=== PATIENT | female | born 1960 | race Caucasian/White ===

== ENCOUNTER → 2021-07-02 10:45 | Outpatient (CLI) | payer BC, SELFPAY ==
--- NOTE | ~2021-07-02 | DEXA_ITS ---
Bone Density Report Name: Anjelica Bowers Age: 60 Sex: Female Ethnicity: White Date of : 1960 Indication: postmenopausal; screening for osteoporosis; Referring Provider: Ayala, Hilda Study: Bone densitometry was performed. Exam Date: July 02, 2021 Accession number: [id number] Bone Density: Region BMD T-score Z-score Classification AP Spine (L1-L4) 0.814 -2.1 -0.8 Osteopenia Femoral Neck (Left) 0.659 -1.7 -0.5 Osteopenia Total Hip (Left) 0.918 -0.2 0.7 Normal Femoral Neck (Right) 0.697 -1.4 -0.1 Osteopenia Total Hip (Right) 0.891 -0.4 0.5 Normal Total Hip Mean 0.905 -0.3 0.6 Normal World Health Organization criteria for BMD impression classify patients as: Normal (T-score at or above -1.0), Osteopenia (T-score between -1.0 and -2.5), or Osteoporosis (T-score at or below -2.5). 10-year Fracture Risk: FRAX not reported because: Treated for osteoporosis Clinical Information Provided by Patient: Is being treated for osteoporosis Has used the following medications: HRT (i.e. estrogen/hormone therapy), Vitamin D Patient maximum height was 57.5 Menopause Age: 50 No regular weight bearing exercise Does not regularly consume dairy products Drinks caffeinated beverages Onset of menses at age 14 Number of children 0 Impression: The patient has low bone mass, based on the Total Spine T-score. Discussion: It is important to ask patients whether they are taking their medications and to encourage continued and appropriate compliance with their osteoporosis therapies to reduce fracture risk. It is also important to review their risk factors and encourage appropriate calcium and vitamin D intakes, exercise, fall prevention and other lifestyle measures. Follow-Up: Consider a repeat BMD and Vertebral Fracture Assessment (VFA) exam in 2 years or sooner if medically necessary, to reassess this patient's status. Reported by: ARA on 07/02/2021 12:06:00 PM. Reviewed, dictated and finalized at location ADomenica ARELLANO
--- NOTE | ~2021-07-02 | MM_ITS ---
EXAMINATION: MM screening harry BI w rebecca HISTORY: Screening TECHNIQUE: Craniocaudal and mediolateral oblique 3-D tomosynthesis images were obtained and synthetic 2-D images were generated. CAD analysis was submitted and interpreted. COMPARISON: No prior mammogram is available for comparison at this institution. BREAST PARENCHYMAL COMPOSITION: There are scattered areas of fibroglandular density. FINDINGS: There are asymmetries in the upper outer quadrant of the right breast. There are masses in the lower inner quadrant of the right breast and upper outer quadrant of the left breast. There are n o suspicious calcifications. IMPRESSION: 1. Bilateral breast masses. Right breast asymmetries. 2. Additional spot compression and mediolateral views with possible follow-up breast ultrasound recom mended. BI-RADS Category 0: Incomplete: Needs additional imaging evaluation. Reviewed, dictated and finalized at location A. IMPRESSION: 1. Bilateral breast masses. Right breast asymmetries. 2. Additional spot compression and mediolateral views with possible follow-up b reast ultrasound recommended. BI-RADS Category 0: Incomplete: Needs additional imaging evaluation.
--- NOTE | ~2021-07-02 | US_ITS ---
EXAMINATION: US transvaginal EXAM DATE: 07/02/2021 11:15 INDICATION: Abnormal findings on diagnostic imaging of other abdominal. TECHNIQUE: Pelvic transvaginal sonogram was performed. There are multiple grayscale and Doppler imag es available for interpretation. Comparison is made to prior examination from 09/17/2018. FINDINGS: Uterus measures 6.8 x 2.9 x 4.6 cm, and is morphologically normal. Endometrial stripe susanne ures 11 mm in thickness (previously measured at 13 mm), which is considered thickened for postmenopau annalise status. Differential diagnosis includes endometrial hyperplasia and cancer (cancer would typicall y be expected to increase in thickness over this time, and reportedly patient did have biopsy.) There is no free pelvic fluid. Right adnexa: The ovary is not identified. There is no adnexal mass. Left adnexa: The ovary is not identified. There is no adnexal mass. IMPRESSION: Chronically thickened endometrium with slight improvement, which favors benign etiology s uch as hyperplasia. Reviewed, dictated and finalized at location A. IMPRESSION: Chronically thickened endometrium with slight improvement, which fa vors benign etiology such as hyperplasia.
== END ==
PROVIDERS: PCP Family Medicine; Visit Provider Nurse Practitioner
DX: Z12.31 Encounter for screening mammogram for malignant neoplasm of breast (principal); Z78.0 Asymptomatic menopausal state; R93.5 Abnormal findings on diagnostic imaging of other abdominal regions, including retroperitoneum; R92.8 Other abnormal and inconclusive findings on diagnostic imaging of breast; M85.88 Other specified disorders of bone density and structure, other site; M85.852 Other specified disorders of bone density and structure, left thigh; M85.851 Other specified disorders of bone density and structure, right thigh
CPT/HCPCS: 76830; 77063; 77067; 77080

== ENCOUNTER → 2021-08-01 09:00 | Outpatient (CLI) | payer BC, SELFPAY ==
--- NOTE | ~2021-08-01 | MMUS_ITS ---
EXAMINATION: MM diagnostic harry BI w rebecca, US breast LT limited, US breast RT complete HISTORY: Bilateral breast masses and right breast asymmetries reported on 07/02/2021 screening mammogr am TECHNIQUE: Additional 3-D tomosynthesis images of both breasts were performed and synthetic 2-D image s were generated. CAD analysis was submitted and interpreted. High resolution upper outer quadrant le ft breast and complete right breast ultrasound including all 4 quadrants and subareolar area was perf ormed. COMPARISON: 07/02/2021 bilateral digital screening mammogram FINDINGS: MAMMOGRAPHIC FINDINGS: There are multiple approximately 7.5 mm or smaller nodular densities suggested in the breasts. No arc hitectural distortion, malignant calcification, skin thickening or retraction is evident. There are s cattered benign calcifications. ULTRASOUND: Left breast: 1:00 5 cm from nipple: 3.4 x 2.5 x 7.1 mm sonolucency without internal vascularity or posterior shado wing, consistent with simple cyst 2:00 12 cm from nipple: Parallel circumscribed sonolucency measuring 9 x 3.5 x 5.4 mm, without customer success intern al vascularity or posterior shadowing, compatible with simple cyst Right breast: 12:00 5 cm from nipple: 4.5 x 4.3 x 5.5 mm cyst 12:00 5 cm from nipple: Parallel circumscribed sonolucency measuring 7 x 2.5 x 5.5 mm, without customer success intern al vascularity, consistent with simple cyst 8.-9:00 6 cm from nipple: 3.9 x 3.2 x 4.4 mm sonolucency without internal vascularity, with through t ransmission, compatible with small cyst 8.-9:00 6 cm from nipple: 2.1 mm circumscribed hypoechoic lesion without internal vascularity or post erior shadowing 9:00 8 cm from nipple: Parallel circumscribed sonolucency measuring 4 x 11 x 8.5 mm, compatible with simple cyst 10:00 8 cm from nipple: 6.5 x 13 x 13 mm sonolucency with through transmission and posterior enhancem ent consistent with simple cyst 10-11:00 6 cm from nipple: 3 x 2.4 x 3.6 mm circumscribed hypoechoic lesion without internal vascular ity or posterior shadowing, with some through transmission IMPRESSION: 1. Benign findings; no mammographic evidence of malignancy 2. Routine annual mammographic screening is recommended BI-RADS Category 2: Benign finding(s). Reviewed, dictated and finalized at location A. IMPRESSION: 1. Benign findings; no mammographic evidence of malignancy 2. Routine annual mammographic screening is recommended BI-RADS Category 2: Benign finding(s). IMPRESSION: 1. Benign findings; no mammographic evidence of malignancy 2. Routine annual mammographic screening is recommended BI-RADS Category 2: Benign finding(s).
== END ==
PROVIDERS: PCP Nurse Practitioner; Visit Provider Obstetrics & Gynecology Gynecology
DX: R92.8 Other abnormal and inconclusive findings on diagnostic imaging of breast (principal)
CPT/HCPCS: 76641; 76642; 77062; 77066; G0279

== ENCOUNTER → 2022-11-19 06:59 | Outpatient (CLI) | payer BC, SELFPAY ==
--- NOTE | ~2022-11-19 | MM_ITS ---
EXAMINATION: MM screening harry BI w rebecca HISTORY: Screening TECHNIQUE: Craniocaudal and mediolateral oblique 3-D tomosynthesis images were obtained and synthetic 2-D images were generated. CAD analysis was submitted and interpreted. COMPARISON: Comparison to multiple prior studies sequentially, with oldest reviewed study dated 07/02. BREAST PARENCHYMAL COMPOSITION: There are scattered areas of fibroglandular density. FINDINGS: Bilateral breast asymmetries are stable. There is no evidence of suspicious mass, calcifica tion, or architectural distortion to suggest malignancy in either breast. There has been no suspiciou s interval change. IMPRESSION: 1. No mammographic evidence of malignancy. 2. Recommend routine screening mammography in one year. BI-RADS Category 2: Benign finding(s). Reviewed, dictated and finalized at location A. [employer] [employer]
== END ==
PROVIDERS: PCP Nurse Practitioner; Visit Provider Obstetrics & Gynecology Gynecology
DX: Z12.31 Encounter for screening mammogram for malignant neoplasm of breast (principal)
CPT/HCPCS: 77063; 77067

== ENCOUNTER 2024-01-12 07:07 | Outpatient (CLI) | payer BC, SELFPAY ==
--- NOTE | ~2024-01-12 | MM_ITS ---
EXAMINATION: MM screening harry BI w rebecca HISTORY: Screening mammogram TECHNIQUE: Craniocaudal and mediolateral oblique 3-D tomosynthesis images were obtained and synthetic 2-D images were generated. CAD analysis was submitted and interpreted. COMPARISON: November 19, 2022 bilateral screening mammogram August 01, 2021 diagnostic bilateral mammogram and limited bilateral 07/02/2021 bilateral screening mammogram breast ultrasound BREAST PARENCHYMAL COMPOSITION: There are scattered areas of fibroglandular density. FINDINGS: Stable fibroglandular asymmetry. There is no evidence of suspicious mass, calcification, or architectural distortion to suggest malignancy in either breast. There has been no suspicious interv al change. IMPRESSION: 1. No mammographic evidence of malignancy. 2. Recommend routine screening mammography in one year. BI-RADS Category 2: Benign finding(s). Reviewed, dictated and finalized at location A.
== END 2024-01-12 07:08 ==
LOC: MICIMG 07:09
PROVIDERS: PCP Nurse Practitioner; Visit Provider Nurse Practitioner
DX: Z12.31 Encounter for screening mammogram for malignant neoplasm of breast (principal)
CPT/HCPCS: 77063; 77067